=== PATIENT | female | born 1950 | race Caucasian/White ===

== ENCOUNTER 2020-05-22 19:57 | Emergency (ER) | payer MEDICARE, SELFPAY ==
[~2020-05-22 19:57] MED LIST: ALEVE220 M1 PO; ALPHAGAN 020 DROPS/M OU; ANTIVERT25 MG PO; ASPIRIN EC81 MG PO; BREO ELLIPTA 11 EACH PO; DIAZEPAM 5MG TAB5 MG PO; DILANTIN100 MG PO; IBUPROFEN800 MG PO; LASIX40 MG PO; NITROMIST4.1 GM PO; NYSTATIN SUSP1 ML/ML PO; OXYGEN; PRILOSEC20 MG PO; PROAIR HFA8.5 GM PO; REPATHA SU140 MG/1 M SC; RIVASTIGMINE3 MG PO; SYNTHROID50 MC1 PO; VENLAFAXINE HCL75 M2 PO; ZYRTEC10 M3 PO
== END 2020-05-22 21:40 | disposition home or self-care (01) ==
LOC: FER 19:57
DX: S01.412A Laceration without foreign body of left cheek and temporomandibular area, initial encounter (principal); J45.909 Unspecified asthma, uncomplicated; Z88.0 Allergy status to penicillin; Z88.8 Allergy status to other drugs, medicaments and biological substances; Z88.2 Allergy status to sulfonamides; W01.190A Fall on same level from slipping, tripping and stumbling with subsequent striking against furniture, initial encounter; Y92.009 Unspecified place in unspecified non-institutional (private) residence as the place of occurrence of the external cause